=== PATIENT | male | born 1975 | race Caucasian/White ===

== ENCOUNTER 2021-05-18 21:28 | Emergency (ER) | payer OTHER ==
[2021-05-18] MEDS ORDERED: BACTRIM DS TAB1 EACH PO (23:19)
== END 2021-05-18 23:38 | disposition home or self-care (01) ==
LOC: FER 21:28
DX: L02.211 Cutaneous abscess of abdominal wall (principal); I10 Essential (primary) hypertension; F17.220 Nicotine dependence, chewing tobacco, uncomplicated; Z79.899 Other long term (current) drug therapy